=== PATIENT | female | born 1955 | race Caucasian/White ===

== ENCOUNTER 2023-03-22 11:24 | Emergency (ER) | payer OTHER, MEDICARE ==
[~2023-03-22] VITALS: Ht 167.6 cm; Wt 72.6 kg
[2023-03-22 13:17] LABS: BASO% 0.2 % (0-3); EOS% 0.8 % (0-8); HEMATOCRIT 47.2 % (37.0-47.0); HEMOGLOBIN 15.6 g/dl (12.0-16.0); IMMATURE GRANULOCYTES 0.1 % (0.0-5.0); LYMPH% 8.2 % (15-41); MEAN CORPUSCULAR HGB 31.4 pG CALC (26.0-32.0); MEAN CORPUSCULAR HGB CONC 33.1 g/dL CAL (32.0-36.0); MONO% 3.4 % (2-13); NEUT# 7.44 thou/uL (2.00-7.15); NEUT% 87.3 % (42-76); RED BLOOD COUNT 4.97 mill/uL (4.20-5.60); RED CELL DISTRI WIDTH 12.4 % (11.5-15.5)
[2023-03-22 13:45] LABS: PROTHROMBIN TIME 40.4 SECONDS (9.0-12.5)
[2023-03-22 13:55] LABS: ALBUMIN 4.5 g/dL (3.2-5.0); ALKALINE PHOSPHATASE 50 u/l (38-126); ANION GAP 12 (6-22 (CALC)); BILIRUBIN, TOTAL 0.7 mg/dL (0.02-1.3); BUN 23 mg/dL (8-23); BUN/CREATININE RATIO 32 (12-20 (CALC)); CARBON DIOXIDE 22 mmol/l (22-30); CHLORIDE 110 mmol/l (95-108); CREATININE 0.7 mg/dL (0.5-1.0); GFR FOR AFR.AMER. > 60 ML/MIN (>=60 (CALC)); GFR OTHER RACES > 60 ML/MIN (>=60 (CALC)); POTASSIUM 4.1 mmol/l (3.5-5.1); SGOT/AST 35 u/l (9-36); SODIUM 140 mmol/l (137-146); TOTAL PROTEIN 7.2 g/dL (6.3-8.2)
[2023-03-22 14:12] LABS: INTERNATIONAL NORMALIZED RATIO 4.5 RATIO (0.7-1.3)
[2023-03-22] MEDS ORDERED: TRAMADOL HYDROC50 M1 PO (15:08)
[2023-03-22] MEDS ORDERED: ONDANSETRON4 MG PO (15:08)
[2023-03-22 15:55] VITALS: BP 124/80
== END 2023-03-22 17:42 | disposition short-term general hospital (02) | DRG 87 ==
LOC: ED 11:24
PROVIDERS: Nurse Practitioner Family
PROC: 0T9B70Z Drainage of Bladder with Drainage Device, Via Natural or Artificial Opening (ICD-10-PCS; principal; 2023-03-22)
PROC: 0BH17EZ Insertion of Endotracheal Airway into Trachea, Via Natural or Artificial Opening (ICD-10-PCS; 2023-03-22)
PROC: 5A1935Z Respiratory Ventilation, Less than 24 Consecutive Hours (ICD-10-PCS; 2023-03-22)
DX: S06.5X0A Traumatic subdural hemorrhage without loss of consciousness, initial encounter (principal); S02.32XA Fracture of orbital floor, left side, initial encounter for closed fracture; S02.842A Fracture of lateral orbital wall, left side, initial encounter for closed fracture; V49.50XA Passenger injured in collision with unspecified motor vehicles in traffic accident, initial encounter; R79.1 Abnormal coagulation profile; T45.515A Adverse effect of anticoagulants, initial encounter; I34.1 Nonrheumatic mitral (valve) prolapse; Z79.01 Long term (current) use of anticoagulants; Z53.1 Procedure and treatment not carried out because of patient's decision for reasons of belief and group pressure
CPT/HCPCS: J1953